=== PATIENT | male | born 1955 | race Asian ===

== ENCOUNTER 2023-04-13 20:47 | Emergency (ER) | payer OTHER ==
[~2023-04-13] VITALS: Ht 175.3 cm; Wt 85.7 kg
[2023-04-13 23:01] VITALS: BP 153/87; TEMP 98.3
== END 2023-04-13 23:01 | disposition home or self-care (01) ==
LOC: ED 20:47
DX: S20.212A Contusion of left front wall of thorax, initial encounter (principal); S22.32XA Fracture of one rib, left side, initial encounter for closed fracture; Y04.8XXA Assault by other bodily force, initial encounter
CPT/HCPCS: 93005; 99283